=== PATIENT | male | born 1960 | race Caucasian/White ===

== ENCOUNTER 2017-06-23 17:20 | Inpatient (IN) | payer OTHER ==
[~2017-06-23] VITALS: Ht 170.2 cm; Wt 68.0 kg
[2017-06-23] MEDS ORDERED: GLIMEPIRIDE1 MG (17:59)
[2017-06-23] MEDS ORDERED: FORTAMET1000 MG (17:59)
[2017-06-23] MEDS ORDERED: VASOTEC10 MG (17:59)
[2017-06-23] MEDS ORDERED: SIMVASTATIN10 MG (18:00)
== END 2017-06-26 09:40 | disposition home or self-care (01) | DRG 669 ==
LOC: ER 17:20 → SURG 18:39
PROVIDERS: Urology
PROC: BT43ZZZ Ultrasonography of Bilateral Kidneys (ICD-10-PCS; 2017-06-23)
PROC: 0T788DZ Dilation of Bilateral Ureters with Intraluminal Device, Via Natural or Artificial Opening Endoscopic (ICD-10-PCS; 2017-06-24)
PROC: 0TF68ZZ Fragmentation in Right Ureter, Via Natural or Artificial Opening Endoscopic (ICD-10-PCS; 2017-06-24)
PROC: 0TC78ZZ Extirpation of Matter from Left Ureter, Via Natural or Artificial Opening Endoscopic (ICD-10-PCS; principal; 2017-06-24 14:00)
DX: N13.2 Hydronephrosis with renal and ureteral calculous obstruction (principal); E87.2 Acidosis; E11.65 Type 2 diabetes mellitus with hyperglycemia; E87.5 Hyperkalemia; N17.8 Other acute kidney failure; D64.89 Other specified anemias

== ENCOUNTER 2023-07-26 05:33 | Emergency (ER) | payer OTHER ==
[~2023-07-26] VITALS: Ht 170.2 cm; Wt 61.2 kg
[~2023-07-26 05:33] MED LIST: FORTAMET1000 MG; GLIMEPIRIDE1 MG; SIMVASTATIN10 MG; VASOTEC10 MG
[2023-07-26] MEDS ORDERED: JENTADUETO XR1 EAC1 PO (05:38)
[2023-07-26] MEDS ORDERED: ORAPRED ODT10 MG (05:39)
[2023-07-26] MEDS ORDERED: UCERIS9 MG (05:40)
[2023-07-26] MEDS ORDERED: MONTELUKAST SODI4 M1 (05:40)
[2023-07-26] MEDS ORDERED: ACTOS15 MG (05:41)
[2023-07-26] MEDS ORDERED: RINGERS SOLUTION,LACTATED 500 ML IV STA (05:58)
[2023-07-26] MEDS ORDERED: KETOROLAC TROMETHAMINE 30 MG VIAL IV STA (05:59)
[2023-07-26] MEDS ORDERED: MEPERIDINE HCL/PF 50 MG/ML VIAL IM STA (06:00)
[2023-07-26] MEDS ORDERED: HYOSCYAMINE SULFATE 0.125 MG TAB.SUBL SL ONE (06:00)
[2023-07-26] MEDS ORDERED: PROMETHAZINE HCL 50 MG/ML AMPUL IM STA (06:00)
[2023-07-26 07:05] LABS: URINE APPEARANCE Clear; URINE BILIRRUBIN Negative (NEGATIVE); URINE BLOOD Negative; URINE COLOR Yellow; URINE LEUKOCYTE Negative; URINE NITRATE Negative; URINE PROTEIN Negative (NEGATIVE); URINE UROBILINOGEN 0.2 E.U./dl
[2023-07-26 07:13] LABS: INR 0.97; PROTHROMBIN TIME 10.2 SECONDS (9.0-11.5)
[2023-07-26 07:15] LABS: HEMATOCRIT 36.8 % (39.0-48.0); HEMOGLOBIN 12.6 g/dL (13-16.00); MEAN CELL VOLUME 85.2 fL (80.0-100.00); MEAN CORPUSCULAR HEMOGLOBIN 29.1 pg (27.00-32.0); MEAN CORPUSCULAR HGB CONC 34.1 g/dl (32.0-36.0); PLATELET COUNT 296 K/uL (150-450); RED BLOOD COUNT 4.31 M/uL (4.00-6.00); RED CELL DISTRIBUTION WIDTH 13.2 % (11.5-14.5)
[2023-07-26 07:22] LABS: ALBUMIN 3.6 gm/dL (3.4-5.0); BILIRUBIN TOTAL 0.38 mg/dL (0.3-1.2); CREATININE SERUM 1.14 mg/dL (0.70-1.30); GFR 65.09; GLOBULINA 3.2 G/DL (2.4-3.5); POTASSIUM 4.38 mEq/L (3.5-5.1); PROSTATIC SPECIFIC ANTIGEN 2.19 NG/ML (0.010-4.00); TOTAL PROTEIN 6.8 gm/dL (6.4-8.2)
[2023-07-26] MEDS ORDERED: INSULIN REGULAR, HUMAN 1,000 UNIT/10 ML UNITS SUBCUTANEO STA (07:50)
[2023-07-26 08:15] LABS: URINE GLUCOSE >=1000 MG/DL (NEGATIVE)
[2023-07-26 08:16] LABS: URINE BACTERIA 2.5 uL (0.0-1933); URINE EPITHELIAL CELLS 0.1 uL (0.0-38.8); URINE WBC 1.1 uL (0.0-23.2)
[2023-07-26] MEDS ORDERED: KETOROLAC TROMETHAMINE 30 MG VIAL IV ONE (22:00)
[2023-07-26] MEDS ORDERED: GABAPENTIN 300 MG CAPSULE PO ONE (22:30)
== END 2023-07-26 23:14 | disposition home or self-care (01) ==
LOC: ER 05:34
DX: M54.89 Other dorsalgia (principal); N23 Unspecified renal colic; E11.9 Type 2 diabetes mellitus without complications; Z79.84 Long term (current) use of oral hypoglycemic drugs; K59.00 Constipation, unspecified